=== PATIENT | female | born 1935 | race Caucasian/White ===

== ENCOUNTER 2018-07-05 23:59 | Inpatient (IN) | payer MEDICARE ==
--- NOTE | 2018-07-06 00:48 | ED ---
Neurological HPI - HPI Summary HPI Summary: HPI LIMITED DUE TO LEVEL 5 CAVEAT - APHASIA We know she has a history of diabetes, HTN, and TIA from the [place] emergency room chart. Patient was seen by RENEE Malin from [place], who contacted me earlier around 2200 yesterday. She communicated that the patient presented to the emergency room with aphasia that resolved. The pt then had an episode of recurrence, which resolved again. The PA said the pt was neurologically intact at 2200 when she spoke to me. Pt was transferred here for TIA workup. Pt was given aspirin at the [facility] for TIA. - History of Current Complaint Chief Complaint: EDNeurologicalDeficit Stated Complaint: POSSIBLE STROKE/CVA PER EMS Time Seen by Provider: 07/06/18 00:30 Hx Obtained From: Patient, EMS Onset/Duration: Sudden Onset Timing: Constant Current Severity: Mild Seizure Severity: Mild Pain Intensity: 0 Pain Scale Used: 0-10 Numeric Aggravating: Environmantal Exposure Alleviating: Nothing Associated Signs and Symptoms: Positive: Impaired Speech - Allergy/Home Medications Allergies/Adverse Reactions: Allergies Allergy/AdvReac Type Severity Reaction Status Date / Time apixaban [From Eliquis] Allergy Unknown Verified 07/06/18 00:14 Reaction Details docosahexanoic acid Allergy Unknown Verified 07/06/18 00:14 [From MegaRed [id number]] Reaction Details eicosapentaenoic acid Allergy Unknown Verified 07/06/18 00:14 [From MegaRed [id number]-[id number]] Reaction Details fluconazole Allergy Unknown Verified 07/06/18 00:14 Reaction Details Iodine and Iodide Containing Allergy Anaphylatic Verified 07/06/18 00:14 Produc Shock levofloxacin Allergy Unknown Verified 07/06/18 00:14 Reaction Details nitrofurantoin Allergy Unknown Verified 07/06/18 00:14 Reaction Details omega-3 fatty acids Allergy Unknown Verified 07/06/18 00:14 [From MegaRed [id number]] Reaction Details solifenacin Allergy Rash Verified 07/06/18 00:14 Wptebtd-Pmg-Jah Reductase Allergy Muscle Ache Verified 07/06/18 00:14 Inhibitor Home Medications: Home Medications Amlodipine Besylate [Norvasc] 5 mg PO DAILY 07/06/18 [History Confirmed 07/06/18 ] Aspirin 81 mg CHEW TAB* [Aspirin Low Dose TAB*] 81 mg PO DAILY 07/06/18 [ History Confirmed 07/06/18] Butalb/Acetaminophen/Caffeine [Butalbital/Acetaminophen/ 50-325-40 mg-] 1 cap PO Q6H PRN 07/06/18 [History Confirmed 07/06/18] Dicyclomine CAP* [Bentyl CAP*] 10 mg PO BID 07/06/18 [History Confirmed 07/06/18 ] Ezetimibe TAB* [Zetia TAB*] 10 mg PO 1700 07/06/18 [History Confirmed 07/06/18] LORazepam [Ativan 0.5 MG TAB] 0.5 mg PO BID PRN 07/06/18 [History Confirmed ] Meclizine TAB* [Antivert 12.5 TAB*] 12.5 mg PO TID PRN 07/06/18 [History Confirmed 07/06/18] Metoclopramide TAB* [Reglan TAB*] 10 mg PO Q8H PRN 07/06/18 [History Confirmed 07/06/18] Metoprolol Succinate 50 mg PO BEDTIME 07/06/18 [History Confirmed 07/06/18] Omeprazole 40 mg PO DAILY 07/06/18 [History Confirmed 07/06/18] Polyethylene Glycol 3350 [Clearlax] 1 dose PO QPM PRN 07/06/18 [History Confirmed 07/06/18] Tramadol HCl [Ultram] 50 mg PO Q4H 07/06/18 [History Confirmed 07/06/18] hydrOXYzine HCL TAB* [Atarax 25 MG TAB*] 25 mg PO QID PRN 07/06/18 [History Confirmed 07/06/18] PMH/Surg Hx/FS Hx/Imm Hx Previously Healthy: No - PMHx LIMITED DUE TO LEVEL 5 CAVEAT - APHASIA Infectious Disease History: Unable to Obtain/Confirm Infectious Disease History: Denies: Traveled Outside the [place] in Last 30 Days - Social History Occupation: Retired Lives: Alone Review of Systems - ROS Summary Review of Systems Summary: ROS LIMITED DUE TO LEVEL 5 CAVEAT - APHASIA Neurological: Other - Positive impaired speech All Other Systems Reviewed And Are Negative: No Physical Exam - Summary Physical Exam Summary: PE LIMITED DUE TO LEVEL 5 CAVEAT - APHASIA VITAL SIGNS: Reviewed. GENERAL: Patient is a well-developed and nourished female who is lying comfortable in the stretcher. Patient is not in any acute respiratory distress. HEAD AND FACE: No signs of trauma. No ecchymosis, hematomas or skull depressions. No sinus tenderness. EYES: PERRLA, EOMI x 2, No injected conjunctiva, no nystagmus. EARS: Hearing grossly intact. Ear canals and tympanic membranes are within normal limits. MOUTH: Oropharynx within normal limits. NECK: Supple, trachea is midline, no adenopathy, no JVD, no carotid bruit, no c- spine tenderness, neck with full ROM. CHEST: Symmetric, no tenderness at palpation LUNGS: Clear to auscultation bilaterally. No wheezing or crackles. CVS: Regular rate and rhythm, S1 and S2 present, no murmurs or gallops appreciated. ABDOMEN: Soft, non-tender. No signs of distention. No rebound no guarding, and no masses palpated. Bowel sounds are normal. EXTREMITIES: FROM in all major joints, no edema, no cyanosis or clubbing. NEURO: Aphasic, dysarthria, and patient seemed to have right drift in the right lower extremity SKIN: Dry and warm Triage Information Reviewed: Yes Vital Signs On Initial Exam: Initial Vitals Temp Pulse Resp BP Pulse Ox 97.7 F 59 22 164/77 96 07/06/18 00:07 07/06/18 00:07 07/06/18 00:07 07/06/18 00:07 07/06/18 00:07 Vital Signs Reviewed: Yes Diagnostics - Vital Signs Vital Signs Temp Pulse Resp BP Pulse Ox 07/06/18 00:07 97.7 F 59 22 164/77 96 - Laboratory Lab Results: Lab Results 07/06/18 Range/Units 00:21 POC Glucose (mg/dL) 122 H (70-100) mg/dL Result Diagrams: 07/06/18 01:12 07/06/18 01:12 Lab Statement: Any lab studies that have been ordered have been reviewed, and results considered in the medical decision making process. - Radiology CXR Radiology Interpretation Completed By: ED Physician Summary of Radiographic Findings: Chest XR reveals, per ED physician, no acute process. - CT Brain CT CT Interpretation Completed By: Radiologist Summary of CT Findings: Brain CT reveals, per radiologist, no acute intracranial abnormality. ED physician has reviewed this radiology report. - EKG 0111 Cardiac Rate: NL EKG Rhythm: Sinus Rhythm - 71 BPM Summary of EKG Findings: An EKG taken at 0111 reveals normal sinus rhythm at 71 BPM with normal axis, normal interval, and no ischemic changes. NIH Scale - NIH Scale Level of Consciousness: Alert/Keenly Responsive Ask Patient the Month and His/Her Age: Neither Correct/Aphasic Ask Pt to Open/Close Eyes and Supply Chain Consultant/Release Non-Paretic Hand: Both Correctly Best Gaze (Only Horizontal Eye Movement): Normal Visual Field Testing: No Visual Loss Facial Paresis-Pt to Smile & Close Eyes or Grimace Symmetry: Normal/Symmetrical Motor Function - Right Arm: No Drift-Holds 10 Seconds Motor Function - Left Arm: No Drift-Holds 10 Seconds Motor Function - Right Leg: Drifts LT 10 seconds Motor Function - Left Leg: No Drift-Holds 10 Seconds Limb Ataxia-Must be out of Proportion to Weakness Present: Absent Sensory (Use Pinprick to Test Arms/Legs/Trunk/Face): Normal Best Language (Describe Picture, Name Items): Severe Aphasia Dysarthria (Read Several Words): Slurs Some Words Extinction and Inattention: No Abnormality Total Score: 6 Course/Dx - Course Course Of Treatment: According to the PA from [place], the pt presented to the emergency at 2115 and stated she was unable to talk at 1930, which then resolved. The pt left the emergency room at 2240 and pt was neurologically intact when she left the ED. Here, the pt was found to be aphasic and dysarthric. INR from [place] was 1.72, repeat INR from here was 1.19. Case discussed with Dr. Lemus from stroke center at [place]. He stated that according to the chart and sequence of events, 2240 was last known well by the PA and the pt is a candidate for TPA as long as INR is normal. Pt received TPA. - Diagnoses Provider Diagnoses: Acute CVA (cerebrovascular accident) During the Visit The Following Alert/Code Occurred: Code Gonzalez - Called at 0046 - Physician Notifications Instructed by Provider To: Other - Consult with the transfer and pumphouse operator at [place] at 0055. Consult with Dr. Lemus (stroke attending at [place]) at 0115. He recommended the patient receive TPA. Consult with Dr. Morris (radiologist ) at 0127. She communicated the results of the CT scan. Consult with Dr. Hernandez (hospitalist) at 0223. She agrees to admit the patient for further evaluation. - Critical Care Time Critical Care Time: 75-104 min - 75 minutes Discharge - Sign-Out/Discharge Documenting (check all that apply): Patient Departure - Ad[place] [facility] Patient Received Moderate/Deep Sedation with Procedure: No - Discharge Plan Condition: Stable Disposition: ADMITTED TO [facility] Referrals: No Primary Care Phys,NOPCP [Primary Care Provider] - - Attestation Statements Document Initiated by Scribe: Yes Documenting Scribe: Josefina Barraza Provider For Whom Scribe is Documenting (Include Credential): Dr. Aurelia Clemente MD Scribe Attestation: I, Josefina Barraza, scribed for Dr. Aurelia Clemente MD on 07/06/18 at 0443. Status of Scribe Document: Ready
[2018-07-06] MEDS ORDERED: NS 0.9% 1000 ML** 1,000 ML IV ONE (01:03)
[2018-07-06 01:18] LABS: ABS Basophils 0 10^3/ul (0-0.2); ABS Eosinophils 0.1 10^3/ul (0-0.6); ABS Lymphocytes 1.5 10^3/ul (1.0-4.8); ABS Monocytes 0.5 10^3/ul (0-0.8); ABS Neutrophils 4.5 10^3/ul (1.5-7.7); ABS Nucleated RBC 0 10^3/ul; Eosinophil % 0.8 %; Hematocrit 38 % (33-41); Hemoglobin 12.4 g/dL (12.0-16.0); Mean Corpuscular HGB Conc 33 g/dL (31-36); Mean Corpuscular Hemoglobin 28 pg (27-31); Mean Corpuscular Volume 84 fL (80-97); Mean Platelet Volume 7.8 fL (7.4-10.4); Nucleated Red Blood Cells % 0; Platelet Count 218 10^3/uL (150-450); Red Blood Count 4.47 10^6 /uL (3.70-4.87); Red Cell Distribution Width 14 % (10.5-15); White Blood Count 6.5 10^3/uL (3.5-10.8)
[2018-07-06 01:27] LABS: INR 1.19 (0.77-1.02)
[2018-07-06] MEDS ORDERED: Alteplase* 100 MG VIAL IVPB ONE (01:34)
[2018-07-06] MEDS ORDERED: Alteplase* 100 MG VIAL ONE (01:34)
[2018-07-06] MEDS ORDERED: Alteplase* 100 MG VIAL IV ONE (01:34)
[2018-07-06 01:36] LABS: Albumin 4.2 g/dL (3.2-5.2); Albumin/Globulin Ratio 1.7 (1-3); BUN/Creatinine Ratio 21.7 (8-20); Calcium 9.5 mg/dL (8.6-10.3); EGFR African American 79.4 (>60); EGFR Non-African American 65.7 (>60); Globulin 2.5 g/dL (2-4); HDL Cholesterol 48.7 mg/dL; Potassium 3.5 mmol/L (3.5-5.0); Total Bilirubin 0.6 mg/dL (0.2-1.0); Total Protein 6.7 g/dL (6.4-8.9)
[2018-07-06 01:38] LABS: Troponin I 0.01 ng/mL (<0.04)
[2018-07-06 02:22] LABS: Urine Appearance Clear; Urine Bilirubin Negative (Negative); Urine Blood Negative (Negative); Urine Color Straw; Urine Glucose Negative (Negative); Urine Ketones 1+ (Negative); Urine Nitrite Negative (Negative); Urine Protein Negative (Negative); Urine Urobilinogen Negative (Negative)
[2018-07-06] MEDS ORDERED: Labetalol IV* 5 MG/ML 20 ML VIAL IV PUSH PRN (02:25)
[2018-07-06] MEDS ORDERED: Acetaminophen SUPP* 650 MG SUPP PR PRN (02:29)
[2018-07-06] MEDS ORDERED: PROCHLORPERAZINE INJ 5 MG/ML 2 ML VIAL IV PRN (02:30)
[2018-07-06 05:05] LABS: ABS Basophils 0 10^3/ul (0-0.2); ABS Eosinophils 0.1 10^3/ul (0-0.6); ABS Lymphocytes 1.1 10^3/ul (1.0-4.8); ABS Monocytes 0.4 10^3/ul (0-0.8); ABS Neutrophils 5.1 10^3/ul (1.5-7.7); ABS Nucleated RBC 0 10^3/ul; Eosinophil % 0.8 %; Hematocrit 39 % (33-41); Hemoglobin 13.1 g/dL (12.0-16.0); Lymphocyte % 16.1 %; Mean Corpuscular HGB Conc 34 g/dL (31-36); Mean Corpuscular Hemoglobin 29 pg (27-31); Mean Corpuscular Volume 85 fL (80-97); Mean Platelet Volume 7.9 fL (7.4-10.4); Nucleated Red Blood Cells % 0; Platelet Count 186 10^3/uL (150-450); Red Blood Count 4.59 10^6 /uL (3.70-4.87); Red Cell Distribution Width 14 % (10.5-15); White Blood Count 6.7 10^3/uL (3.5-10.8)
[2018-07-06 05:30] LABS: Calcium 8.9 mg/dL (8.6-10.3); Potassium 3.6 mmol/L (3.5-5.0)
[2018-07-06 05:36] LABS: BUN/Creatinine Ratio 21.1 (8-20); EGFR African American 95.1 (>60); EGFR Non-African American 78.6 (>60)
--- NOTE | 2018-07-06 06:29 | HP ---
CC: Tracy Romero DO HISTORY AND PHYSICAL: DATE OF ADMISSION: 07/06/18 TIME OF EVALUATION: 2:25 a.m. PRIMARY CARE PROVIDER: Tracy Romero DO CHIEF COMPLAINT: Code kay. HISTORY OF PRESENT ILLNESS: Please note that the patient is not able to provide any meaningful history at this time, so the information is obtained from her records and from the emergency room provider. Ms. García is an 82-year-old female with past medical history of CKD, COPD, type 2 diabetes, diverticulosis, GI bleed, hypertension, IBS, prior TIA, who was in her usual state of health until around 7:30 last night. There was a report that her right face felt weird and she went to [facility] Emergency Room where she was received at 9:08 p.m. She complained that the right side of her face was feeling weird, and at that time, the patient was described as alert, oriented x3 with no other complaint. Around 10:17, the RN described the patient was word searching and trying to explain what she was trying to say, but her words were jumbled and not making any sense. She went to a CAT scan, and when she returned at 2234, apparently her speech was back to normal, and [facility] ED was contacted for transfer and neurology evaluation. At [place], she received 325 mg of aspirin and 0.5 mg of lorazepam. Per ED provider, by the time the patient arrived to [facility] and he went to evaluate her, the patient was completely aphasic and a code eliza was called. He consulted Dr. Lemus, stroke attending at [place] at 1:15 a.m., and he recommended the patient receive TPA and this was done in the emergency room. At the time of my interview, the patient was able to tell me her name is Vanessa but cannot tell me her last name, and she can tell me she needs to go to the bathroom, but she cannot provide anymore meaningful history. She denies chest pain, palpitations, headache, nausea, or vomiting, but to those questions, she answered with a head shake. PAST MEDICAL HISTORY: I am unable to obtain from the patient and according to the records from [place], the patient has a history of: 1. CKD. 2. COPD. 3. Type 2 diabetes. 4. Diverticulitis. 5. GI bleed. 6. Hypertension. 7. Irritable bowel syndrome. 8. TIA. PAST SURGICAL HISTORY: 1. Status post right hip surgery x2. 2. Status post hysterectomy. 3. Status post appendectomy. 4. Status post cholecystectomy. 5. Left ankle fracture. MEDICATION LIST: 1. Amlodipine 5 p.o. daily. 2. Aspirin 81 mg p.o. daily. 3. Butalbital/acetaminophen/caffeine 1 capsule p.o. q.6 hours p.r.n. headache. 4. Dicyclomine 10 mg p.o. b.i.d. 5. Zetia 10 mg p.o. daily. 6. Hydroxyzine 25 mg p.o. q.i.d. as needed for anxiety. 7. Lorazepam 0.5 mg p.o. b.i.d. as needed for anxiety. 8. Meclizine 12.5 mg p.o. t.i.d. p.r.n. dizziness. 9. Metoclopramide 10 mg p.o. q.8 hours p.r.n. nausea and vomiting. 10. Metoprolol succinate 50 mg p.o. at bedtime. 11. Omeprazole 40 mg p.o. daily. 12. MiraLAX 1 dose p.o. at bedtime as needed for constipation. 13. Tramadol 50 mg p.o. q.4 hours. ALLERGIES: APIXABAN, OMEGA 3, FLUCONAZOLE, IODINE, LEVOFLOXACIN, NITROFURANTOIN , SOLIFENACIN, and STATINS. FAMILY HISTORY: I am unable to obtain from the patient due to her aphasia. SOCIAL HISTORY: I am unable to obtain from the patient due to her aphasia. REVIEW OF SYSTEMS: Limited review of systems as described in the HPI, but I am unable to obtain more details due to her aphasia. PHYSICAL EXAMINATION GENERAL: The patient is an elderly lady, lying in the ED stretcher, in no acute distress. VITAL SIGNS: Temperature 97.6, heart rate is 73, respiratory rate is 20, oxygen saturation is 97% on room air, blood pressure is 176/93. HEENT: Pupils are equal. Extraocular movements are intact. Moist mucous membranes. CHEST: Breath sounds present bilaterally with no added sounds. CVS: Normal S1, S2. Regular rate and rhythm. ABDOMEN: Soft with mild epigastric tenderness but no palpable bladder. Bowel sounds are present. EXTREMITIES: No edema. NEURO: The patient is alert and awake, oriented to self and place. She is able to tell me her name is Vanessa but unable to give me more meaningful information. Strength is 5/5 in both upper extremities and 4/5 on her right leg. NIH stroke scale is 5. LABORATORY AND IMAGING DATA: The patient had a CBC that showed a WBC of 6.5, hemoglobin of 12.4, hematocrit of 38, platelets of 218 with 68% neutrophils. INR is 1.19. Chemistries showed a sodium of 139, potassium of 3.5, chloride of 107, bicarb of 22, BUN of 18, creatinine of 0.83, glucose of 112 with a lactic acid of 1.2. LFTs are normal. Lipid profile showed triglycerides 74, cholesterol 199, LDL 136, HDL 48. Urinalysis showed 1+ ketones. CT of the brain showed no acute intracranial findings. EKG done on 07/06/18 at 1:11 a.m. showed sinus rhythm at 71 beats per minute with motion artifact, but I see P waves and I do not think this is atrial fibrillation. There is no prior EKG to compare. ASSESSMENT AND PLAN: Ms. García is an 82-year-old female with a past medical history of chronic kidney disease, chronic obstructive pulmonary disease, type 2 diabetes, diverticulitis, gastrointestinal bleed, hypertension, irritable bowel syndrome, transient ischemic attack, who was transferred from [facility] with right-sided facial tingling and difficulty with speech, who on arrival to our emergency room was aphasic and as a code kay, she received TPA. 1. Cerebrovascular accident, status post TPA. The patient's speech appears to be improving a little. She will be admitted to the intensive care unit, and we will continue the post TPA protocol. At this point, she is n.p.o., and she will need a swallow evaluation. She will have labetalol IV as needed for blood pressure greater than 185/110. She will be monitored with frequent neurological checks and vital signs monitoring. A CTA of the head and neck had been ordered in the emergency room, but unfortunately the patient is allergic to IODINE, so this test was canceled. I ordered MRI of the brain with MRA of the head and neck. Neurology consultation will be requested. For now, the patient will not receive further aspirin. She will have a repeat CT of the brain tomorrow, and if there are no signs of bleeding, she could then be started on antiplatelet therapy. 2. Type 2 diabetes. We will check her fingersticks q.6 hours and cover with regular insulin sliding scale as needed. 3. Hyperlipidemia. The patient is on Zetia as outpatient, and we will resume that when she is able to swallow. There is a reported allergy to STATINS. 4. Hypertension. The patient's amlodipine is on hold for now until she passes her swallow evaluation. She will have labetalol IV as needed for blood pressure above 185/110. 5. DVT prophylaxis: The patient has a score of 3 on the DVT prophylaxis assessment guide and pharmacological prophylaxis is contraindicated in the setting of recent TPA infusion. The patient will have SCDs. 6. Code status is full. TIME SPENT: Approximately 55 minutes of critical care time was spent to complete the admission. [id number]/CPS #: [id number] SULAIMAN
[2018-07-06] MEDS: Insulin REGULAR(*) 1 UNITS UNIT SUBCUT SCH ×3 (07:01→19:17)
--- NOTE | 2018-07-06 07:39 | PN ---
Hospitalist Progress Note Date of Service: 07/06/18 HOSPITALIST ADDENDUM Neurology consult requested with Dr Richardson. Patient had anaphylactic reaction to iodine contrast - plan for MRI/MRA head/neck ARELY as she may have large vessel disease and be a candidate for further intervention. Called Radiologist/water supply technician and patient is scheduled for 10AM. Dr Richardson and Dr Hernandez updated.
[2018-07-06] MEDS ORDERED: LORazepam INJ* 2 MG/ML 1 ML VIAL IV PUSH ONE (09:27)
[2018-07-06] MEDS ORDERED: LORazepam INJ* 2 MG/ML 1 ML VIAL ONE (09:52)
[2018-07-06] MEDS: LORazepam INJ* 2 MG/ML 1 ML VIAL IV PUSH ONE ×2 (12:46→14:28)
--- NOTE | 2018-07-06 14:49 | CONS ---
NEUROLOGY CONSULTATION NOTE: DATE OF CONSULT: 07/06/18 CONSULTING PROVIDER: Dr. Sam. REASON FOR CONSULT: Stroke. CHIEF COMPLAINT: Word-finding difficulty. HISTORY OF PRESENT ILLNESS: Ms. Nova García is an 82-year-old female, who lives alone and performs all activities of daily living independently, who presented to [facility] as a transfer from [facility] for new - onset word-finding difficulty and right-sided weakness. The patient has a history of CKD, type 2 diabetes, hypertension, prior history of TIA, who was last known well at 7:30 p.m. on 07/05/18. There were some reports that the patient had right facial paresthesias that resolved at [facility]. However, at 10:17 p.m. on 07/05/18, the patient was found to have word-finding difficulty. She had a CT of the head done at [facility], and apparently , the patient's symptoms completely resolved at approximately 10:30 p.m. The patient was then transferred to [facility] for further evaluation. A code kay was activated by Dr. Clemente when he noticed word-finding difficulty and right-sided weakness at 12:46 a.m. [facility]roke was consulted and Dr. Lemus evaluated the patient at 1:15 a.m. She was thought to be last known well at 2234 on 07/05/18. She was given TPA and infused at 1: 50 a.m. on 07/06/18. Her NIH stroke scale was reported to be 6 for aphasia, right facial droop, right-sided weakness, and predominantly in the right leg. I do not have the records available from the [facility] consultation. However, a CTA was not urgently completed because the patient has a contrast dye allergy. MRI/MRA head and neck were scheduled for this morning. The patient was evaluated by myself this morning. She seems to have slight psychomotor slowing with some anxiety, but she reports word- finding difficulty that improved after IV TPA. She also had right leg weakness, for which she contributes it to arthritic changes in the lumbar spine; however, she is able to ambulate with just using a cane in the past and now she can barely lift the right leg. Today's NIH stroke scale was 4 for word-finding difficulty , slight right pronator drift of the right upper extremity and 2.4 right leg drift. MRI/MRA head and neck were attempted this morning at 10 a.m. after a small dose of Ativan, but the patient refused to cooperate due to severe claustrophobia. The MRI will be repeated again this afternoon. The patient tolerated the IV TPA infusion. She is still within the 24-hour window of IV TPA. PAST MEDICAL HISTORY: CKD, COPD, type 2 diabetes, diverticulitis, GI bleed, hypertension, irritable bowel syndrome, TIA. PAST SURGICAL HISTORY: Right hip surgery x2, status post hysterectomy, appendectomy, cholecystectomy, and left ankle surgery. MEDICATIONS: 1. Amlodipine 5 mg p.o. daily. 2. Aspirin 81 mg p.o. daily. 3. Fioricet. 4. Dicyclomine. 5. Zetia 10 mg daily. 6. Hydroxyzine 25 mg p.o. q.i.d. as needed for anxiety. 7. Lorazepam 0.5 mg p.o. twice daily as needed for anxiety. 8. Meclizine 12.5 mg p.o. t.i.d. as needed for dizziness. 9. Reglan 10 mg p.o. every 8 hours as needed for nausea and vomiting. 10. Metoprolol 50 mg p.o. at bedtime. 11. Omeprazole 40 mg p.o. daily. 12. MiraLAX 1 dose p.o. at bedtime as needed. 13. Tramadol 50 mg p.o. every 4 hours. ALLERGIES: APIXABAN, OMEGA-3, FLUCONAZOLE, IODINE, LEVOFLOXACIN, NITROFURANTOIN , SOLIFENACIN, and STATINS. FAMILY HISTORY: She has no family history of stroke or seizures. SOCIAL HISTORY: The patient again lives alone and performs all activities of daily living independently. She drives. She denied any history of tobacco or alcohol use. REVIEW OF SYSTEMS: A 14-point review of systems was obtained, otherwise negative except what was mentioned in the HPI. PHYSICAL EXAMINATION: Vitals: Temperature of 97.6, heart rate 77, respiratory rate of 24, oxygen saturation 95, blood pressure 141/119. I rechecked the blood pressure and it was 158/78. General: Well nourished, well developed, appears slightly demented female in no acute distress. Head: Normocephalic, atraumatic. Eyes: Conjunctivae/corneas are clear. Neck is supple and symmetrical. No carotid bruit. Lungs: Clear to auscultation bilaterally. Cardiovascular: Regular rate and rhythm with normal S1, S2. Extremities: Normal range of motion with no cyanosis. Skin: No skin lesions or laceration. Psych: Affect is broad and normal mood. NEUROLOGICAL EXAMINATION: Mental Status: Awake, alert, oriented to person, place, time, and general circumstances. She seems slightly anxious. Cranial Nerves: Normal confrontation testing bilaterally. Pupils are mid range and reactive to light. Normal consensual response. Extraocular muscles are intact. Sensation is intact on the forehead, cheeks, and jaw region bilaterally. There is no clear facial droop, but she does have widening of the palpable fissure on the right side. She is able to hear throughout the history process. Symmetrical palatal elevation. Tongue is symmetrical and midline with anterior fasciculation. Motor: She has slight pronator drift on the right and drift of the right leg as well. Normal bulk and tone throughout. She has 5/5 strength throughout except for 4+ on the right elbow extension, hip flexion, and knee flexion on the right side. Sensation is intact to light touch throughout. Reflexes, brachioradialis 2/1, biceps 2/1, triceps 2/1, patella 2/1 , ankle trace/0, plantar flexor/flexor. Coordination: Normal [id number] and reduced rapid alternating movement on the right side. Gait was not assessed. ASSESSMENT AND RECOMMENDATION: Mrs. Nova García is an 82-year-old female who has a history of hypertension, who presents with sudden-onset aphasia associated with right hemiparesis mostly involving the right lower extremity. The patient was evaluated for acute stroke by the [facility] Telest[facility]. She was deemed a candidate for IV TPA. It is unclear why the patient was not evaluated for mechanical thrombectomy given that her NIH stroke scale was high (6) on presentation. Currently, her NIH dropped to 4 after TPA therapy. I suspect the patient may have had a left MCA vascular territory or left JOSUE vascular territory ischemic infarction. Please evaluate for atrial fibrillation. Please order a 2D echo with bubble study. Please hold all anti- thrombotic agents since the patient received TPA within the last 24 hours. Admit to the ICU for further evaluation. Neuro checks per ICU post TPA protocol. We discussed stroke education. I have also discussed the case with Dr. George and an MRI of the brain and MRA head and neck will be urgently ordered and evaluated to evaluate for large-vessel occlusion involving the left ICA or the left MCA. Dr. George agreed to discuss the case with the cytogenetics technologist; and hopefully, the patient will proceed with MRI this afternoon. It is important to note that we had urgently transferred the patient to MRI to obtain the study, but she was severely claustrophobic and appropriately refused to undergo evaluation. However, we are going to try doing the MRI with increase sedation this afternoon. The patient refused to be started on STATIN therapy due to a history of an allergic reaction. TIME SPENT: I spent a total of 60 minutes of critical care time assessing the patient, interviewing the patient, obtaining history and evaluation, interpreting the CT head result, discussing the case with the patient and Dr. George, and answering the patient's questions. [id number]/CPS #: [id number] MTDD
[2018-07-06] MEDS: Lactated Ringers 1000 ML Bag* 1,000 ML IV SCH (16:30)
--- NOTE | 2018-07-06 17:01 | PN ---
Hospitalist Progress Note Pt admitted overnight and evaluated by Neuro. Given tPA at 2 AM on 07/06. Being admitted to ICU for post-TPA protocal. Still pending bed. TTE with bubbles ordered. Carotid US ordered. MRA Head/Neck without large-vessel occlusion. NO further AC, antiplatelet, or medical DVT prophylactic therapies. Maintain BP < 180 mmHg. Will have 24-hr repeat Head CT done overnight. On exam, pt asks "what happened?" AOx3. CN II - XII intact 5/5 strength in all extremities except mild impairment (4+/5) on R elbow ext, R hip flex, and R knee ext
[2018-07-06] MEDS: traMADol TAB* 50 MG PO SCH (20:43)
[2018-07-06] MEDS: LORazepam TAB(*) 0.5 MG PO PRN (20:57)
[2018-07-07] MEDS: Insulin REGULAR(*) 1 UNITS UNIT SUBCUT SCH ×4 (00:57→18:23)
[2018-07-07 05:45] LABS: ABS Basophils 0 10^3/ul (0-0.2); ABS Eosinophils 0.1 10^3/ul (0-0.6); ABS Lymphocytes 1.4 10^3/ul (1.0-4.8); ABS Monocytes 0.5 10^3/ul (0-0.8); ABS Neutrophils 1.9 10^3/ul (1.5-7.7); ABS Nucleated RBC 0 10^3/ul; Eosinophil % 2.5 %; Hematocrit 35 % (33-41); Hemoglobin 11.8 g/dL (12.0-16.0); Lymphocyte % 35.7 %; Mean Corpuscular HGB Conc 33 g/dL (31-36); Mean Corpuscular Hemoglobin 28 pg (27-31); Mean Corpuscular Volume 85 fL (80-97); Mean Platelet Volume 7.9 fL (7.4-10.4); Nucleated Red Blood Cells % 0.1; Platelet Count 170 10^3/uL (150-450); Red Blood Count 4.18 10^6 /uL (3.70-4.87); Red Cell Distribution Width 14 % (10.5-15); White Blood Count 3.9 10^3/uL (3.5-10.8)
[2018-07-07 06:03] LABS: BUN/Creatinine Ratio 15.3 (8-20); Calcium 8.7 mg/dL (8.6-10.3); EGFR African American 93.6 (>60); EGFR Non-African American 77.4 (>60); Potassium 3.4 mmol/L (3.5-5.0)
[2018-07-07] MEDS: traMADol TAB* 50 MG PO SCH ×6 (06:26→21:38)
[2018-07-07] MEDS: Lactated Ringers 1000 ML Bag* 1,000 ML IV SCH (08:02)
[2018-07-07] MEDS ORDERED: Potassium Chlor TAB* 20 MEQ TAB.ER PO ONE (08:20)
--- NOTE | 2018-07-07 10:59 | ECHO ---
Patient: MEKA ROBLES [facility] Rec#: [id number] : 1935 Date: 07/07/2018 Age: 82y Height: 165 cm / 65.0 in Weight: 64.2 kg / 141.5 lbs Sex: F BSA: 1.7 Room#: ICU 3 Admit Date#: 07/06/2018 Type: Inpatient Referring: Estelle Hernandez MD Reading: Paolo Roman MD Department Operations Manager: Kandy Combs RN RDCS CC: Tracy Romero, DO Transthoracic Echocardiogram Indication: CVA, S/P tPA BP: 140/65 HR: 51 Rhythm: Bradycardia Findings History: HTN, DM, COPD, CKD, prior TIA Technical Comments: The study quality is fair. The study is technically limited due to the patient's history of COPD. Left Ventricle: The left ventricular chamber size is normal. Moderate concentric left ventricular hypertrophy is observed. Global left ventricular wall motion and contractility are within normal limits. There is normal left ventricular systolic function. The estimated ejection fraction is 60-65%. There is no consistent Doppler evidence of clinically significant diastolic dysfunction. Left Atrium: The left atrial chamber size is normal. Right Ventricle: The right ventricle wall thickness is mildly increased. The right ventricular cavity size is normal. The right ventricular global systolic function is normal. Right Atrium: The right atrium is slightly dilated. The bubble study is negative. A patent foramen ovale is not demonstrated with color Doppler and agitated contrast. Aortic Valve: The aortic valve leaflets are mildly thickened. There is aortic annular calcification. There is mild to moderate aortic regurgitation. There is mild to moderate aortic stenosis. The mean gradient of the aortic valve is 13 mmHg. The peak instantaneous gradient of the aortic valve is 27 mmHg. The aortic valve area, by peak velocities, is calculated at 1.3 cm2. The aortic valve area, by VTI's, is calculated at 1.3 cm2. The dimensionless index is 0.46. Highest aortic valve velocity was acquired with Pedoff in apical position. Mitral Valve: The mitral valve leaflets are mildly thickened. There is mild mitral regurgitation. There is no evidence of mitral stenosis. Tricuspid Valve: The tricuspid valve leaflets are normal. There is mild tricuspid regurgitation. No pulmonary hypertension is noted. There is no tricuspid stenosis. Pulmonic Valve: The pulmonic valve appears normal. There is mild to moderate pulmonic regurgitation. There is no pulmonic stenosis. Pericardium: There is no significant pericardial effusion. A pericardial fat pad is visualized. Aorta: There is mild dilatation of the ascending aorta. There is no dilatation of the aortic arch. There is no dilation of the aortic root. Pulmonary Artery: The main pulmonary artery appears normal. Venous: The inferior vena cava appears normal in size. There is a greater than 50% respiratory change in the inferior vena cava dimension. Contrast: Normal saline was used as contrast for the bubble study. Images 118 and 119. Summary: There was not any prior study for comparison. Conclusions Global left ventricular wall motion and contractility are within normal limits. There is normal left ventricular systolic function. The estimated ejection fraction is 60-65%. The right ventricle wall thickness is mildly increased. The right ventricular global systolic function is normal. A patent foramen ovale is not demonstrated with color Doppler and agitated contrast. The aortic valve leaflets are mildly thickened. There is mild to moderate aortic stenosis. The mean gradient of the aortic valve is 13 mmHg. There is mild mitral regurgitation. There is mild tricuspid regurgitation. No pulmonary hypertension is noted. There is no significant pericardial effusion. Measurements Name Value Normal Range RVIDd (AP) 2D 2.6 cm (0.9 - 2.6) RVDdMajor (2D) 2.3 cm (2.2 - 4.4) RVAW (2D) 0.8 cm (0.2 - 0.5) RAd ISD 4CH 5.1 cm (3.4 - 4.9) RA (A4C)W 3 cm (2.9 - 4.6) IVSd (2D) 1.5 cm (0.6 - 1) LVPWd (2D) 1.5 cm (0.6 - 1) LVIDd (2D) 3.8 cm (3.6 - 5.4) LVIDs (2D) 2.5 cm - LV FS (2D) 34 % (25 - 45) Aortic Annulus 1.8 cm (1.4 - 2.6) Ao root diameter (2D) 3.1 cm (2.1 - 3.5) Ascending Ao 3.7 cm (2.1 - 3.4) Aortic arch 2.4 cm (1.8 - 3.4) LA dimension (AP) 2D 3.5 cm (2.3 - 3.8) LAd ISD 4CH 5.2 cm (2.9 - 5.3) LA ISD 4CH W 3.7 cm (2.5 - 4.5) Name Value Normal Range LA ESV SP 4CH (A/L) 41 ml - LA ESV SP 2CH (A/L) 50 ml - LA ESV BP (A/L) 46 ml - LA ESV BP (A/L) index 26.9 ml/m2 - LA ESV SP 4CH (MOD) 39 ml - LA ESV SP 2CH (MOD) 47 ml - Name Value Normal Range MV E-wave Vmax 0.7 m/sec - MV deceleration time 376 msec - MV A-wave Vmax 1.2 m/sec - MV E:A ratio 0.6 ratio - LV septal e' Vmax 0.04 m/sec - LV lateral e' Vmax 0.04 m/sec - LV E:e' septal ratio 17.5 ratio - LV E:e' lateral ratio 17.5 ratio - Name Value Normal Range AV Vmax 2.6 m/sec - AV VTI 63.6 cm - AV peak gradient 27 mmHg - AV mean gradient 13 mmHg - LVOT diameter 1.9 cm - LVOT Vmax 1.2 m/sec - LVOT VTI 29.2 cm - LVOT peak gradient 5 mmHg - LVOT mean gradient 3 mmHg - DOI (VTI) 0.46 ratio - DOI (Vmax) 0.46 ratio - STU (continuity Vmax) 1.3 cm2 - STU (continuity VTI) 1.3 cm2 - JULIETA Vmax 0.53 m/sec - Name Value Normal Range TR Vmax 2.4 m/sec - TR peak gradient 23 mmHg - RAP 3 mmHg - RVSP 26 mmHg - IVC diameter 1.6 cm - Name Value Normal Range PV Vmax 0.91 m/sec -
[2018-07-07 12:27] LABS: Hematocrit 37 % (33-41); Hemoglobin 12.4 g/dL (12.0-16.0); Mean Corpuscular HGB Conc 33 g/dL (31-36); Mean Corpuscular Hemoglobin 28 pg (27-31); Mean Corpuscular Volume 84 fL (80-97); Mean Platelet Volume 7.7 fL (7.4-10.4); Platelet Count 179 10^3/uL (150-450); Red Blood Count 4.43 10^6 /uL (3.70-4.87); Red Cell Distribution Width 14 % (10.5-15); White Blood Count 5.7 10^3/uL (3.5-10.8)
--- NOTE | 2018-07-07 12:33 | PN ---
Subjective Date of Service: 07/07/18 Length of Stay: 1 Days Neurology is following for TIA. Interval History: She completely recovered yesterday afternoon. She has no neurological deficits. She feels even better today. She has no trouble finding the correct words. She is able to move the legs symmetrically. She had the same presentation 2 years ago and it was contributed to anxiety. She lost her dentures in the ambulance. Labs/imaging studies: 2D-TTE: EF 60%. No PFO. Normal left atrial size. Mild to moderate aortic stenosis. MRI brain without contrast on 07/06/2018: No acute stroke. Generalized atrophy with chronic small vessel ischemic changes. Motion artifact degraded the GRE sequence. MRA head and neck : no flow limiting stenosis. Review of Systems: Denied CP, SOB, or palpitations. Objective Active Medications: Acetaminophen (Tylenol Supp*) 650 mg DC Q4H PRN PRN Reason: Pain/fever Insulin Human Regular (Insulin Regular(*)) 0 units SUBCUT Q6HR [facility]; Protocol Last Admin: 07/07/18 06:26 Dose: Not Given Labetalol HCl (Trandate Iv*) 40 mg IV PUSH .EVERY 10 MINUTES PRN PRN Reason: BLOOD PRESSURE Lorazepam (Ativan Tab(*)) 0.25 mg PO Q6H PRN PRN Reason: ANXIETY Last Admin: 07/06/18 20:57 Dose: 0.25 mg Prochlorperazine Edisylate (Compazine Inj*) 5 mg IV Q6H PRN PRN Reason: NAUSEA/VOMITING Tramadol HCl (Ultram*) 50 mg PO Q4H [facility] Last Admin: 07/07/18 07:20 Dose: Not Given Vital Signs 07/07/18 07/07/18 07/07/18 09:30 10:00 10:01 Temperature Pulse Rate 67 86 96 Respiratory 12 14 19 Rate Blood Pressure 133/75 107/80 (mmHg) O2 Sat by Pulse 96 96 95 Oximetry 07/07/18 07/07/18 11:01 11:49 Temperature 98.1 F Pulse Rate 73 65 Respiratory 18 14 Rate Blood Pressure 142/61 (mmHg) O2 Sat by Pulse 100 99 Oximetry Intake and Output Last 24 Hours 07/05/18 07/06/18 07/07/18 07/08/18 06:59 06:59 06:59 06:59 Intake Total 1452.8 376 240 Output Total 475 0 Balance 1452.8 -99 240 Weight 141 lb 9.6 oz 142 lb 10.225 oz Intake: IV Fluids 1452.8 376 LR 395 376 Oral 240 Output: Urine 475 0 Landin 0 Oxygen Devices in Use Now: None Neurology Exam: General: Well nourished, well developed, and in no acute distress HEENT: Normocephelic/atraumatic, sclera anicteric, mucous membranes moist Neck: Supple Chest: Clear to auscultation bilaterally Cardiovascular: Regular rate and rhythm without murmurs, rubs, gallops Extremities: No clubbing, cyanosis, or edema Neurological Findings: Awake, alert, and oriented to person, place, and time. Speech: fluent without dysarthria, repetition intact Cranial Nerve: PERRL, EOM intact, VFF, no nystagmus Motor: s/s throughout, proximal and distal extremities x4 tone/bulk normal Sensation: intact to LT/PP bilaterally upper and lower extremities Deep Tendon Reflex: 2+ symmetric in the upper/lower extremities, Babinski - down going Finger to nose, rapid alternating movements intact without tremor, no dysdiadochokinesia Result Diagrams: 07/07/18 12:19 07/07/18 05:40 Additional Lab and Data: Lab Results 07/06/18 Range/Units 00:21 POC Glucose (mg/dL) 122 H (70-100) mg/dL Microbiology and Other Data: Microbiology 07/06/18 20:50 Nasal Screen MRSA (PCR) - Final Nasal Mrsa Not Detected Assessment/Plan 1. Left MCA vascular territory TIA- s/p IV tPA. She has no LVO. MRI brain is negative for acute ischemic stroke. Repeat CT head 24h post tPA showed no evidence of ICH. We need to evaluate for atrial fibrillation. She has an allergy to apixaban but not sure what she was taking that for. Does she have atrial fibrillation? Start Plavix 75 mg daily Start atorvastatin 20 mg nightly (LDL 136) Keep SBP within normal range Maximized primary stroke prevention Follow-up with neurology as an outpatient in 4 weeks. We will arrange an appointment. 2. Generalized anxiety disorder: She would benefit from low dose benzodiazepine as an outpatient. There is a suspicion that the anxiety could have contributed to her word finding difficulty. 3. Dyslipidemia Time spent: 25 minutes I will sign off but please contact me for any questions or concerns.
[2018-07-07 12:46] LABS: BUN/Creatinine Ratio 14.4 (8-20); EGFR African American 72.4 (>60); EGFR Non-African American 59.8 (>60); Potassium 3.5 mmol/L (3.5-5.0)
[2018-07-07] MEDS: Clopidogrel TAB* 75 MG PO SCH (13:05)
[2018-07-07] MEDS: LORazepam TAB(*) 0.5 MG PO PRN ×2 (13:13→21:32)
--- NOTE | 2018-07-07 15:52 | PN ---
Subjective Interval History: 24-hour CT Head post-TPA unremarkable. Transferred out of ICU to [facility] today. Started on clopidogrel/atorvastatin by Neurology, who has signed off recommending f/u in 4 weeks. Cleared by OT for DC without services. Pending PT. Pt reports feeling well and would like to go home. She states she feels at her baseline. Objective Active Medications: Acetaminophen (Tylenol Supp*) 650 mg [place] Q4H PRN PRN Reason: Pain/fever Atorvastatin Calcium (Lipitor*) 20 mg PO 2100 MASOUD Clopidogrel Bisulfate (Plavix Tab*) 75 mg PO DAILY [facility] Last Admin: 07/07/18 13:05 Dose: 75 mg Insulin Human Regular (Insulin Regular(*)) 0 units SUBCUT Q6HR [facility]; Protocol Last Admin: 07/07/18 12:36 Dose: Not Given Labetalol HCl (Trandate Iv*) 40 mg IV PUSH .EVERY 10 MINUTES PRN PRN Reason: BLOOD PRESSURE Lorazepam (Ativan Tab(*)) 0.25 mg PO Q6H PRN PRN Reason: ANXIETY Last Admin: 07/07/18 13:13 Dose: 0.25 mg Prochlorperazine Edisylate (Compazine Inj*) 5 mg IV Q6H PRN PRN Reason: NAUSEA/VOMITING Tramadol HCl (Ultram*) 50 mg PO Q4H [facility] Last Admin: 07/07/18 13:12 Dose: Not Given Vital Signs - 8 hr 07/07/18 07/07/18 07/07/18 07:46 07:56 07:57 Temperature 98.6 F Pulse Rate 47 Respiratory 16 15 Rate Blood Pressure 150/68 (mmHg) O2 Sat by Pulse 99 98 Oximetry 07/07/18 07/07/18 07/07/18 08:00 08:15 08:30 Temperature Pulse Rate 49 48 50 Respiratory 22 13 11 Rate Blood Pressure 158/65 143/56 139/62 (mmHg) O2 Sat by Pulse 99 99 96 Oximetry 07/07/18 07/07/18 07/07/18 09:00 09:10 09:30 Temperature Pulse Rate 65 67 Respiratory 21 11 12 Rate Blood Pressure 133/75 (mmHg) O2 Sat by Pulse 95 96 Oximetry 07/07/18 07/07/18 07/07/18 10:00 10:01 11:01 Temperature Pulse Rate 86 96 73 Respiratory 14 19 18 Rate Blood Pressure 107/80 (mmHg) O2 Sat by Pulse 96 95 100 Oximetry 07/07/18 07/07/18 07/07/18 11:49 13:04 13:10 Temperature 98.1 F 98.2 F Pulse Rate 65 57 Respiratory 14 16 20 Rate Blood Pressure 142/61 147/56 (mmHg) O2 Sat by Pulse 99 100 Oximetry 07/07/18 07/07/18 13:12 13:13 Temperature Pulse Rate Respiratory 16 16 Rate Blood Pressure (mmHg) O2 Sat by Pulse Oximetry Oxygen Devices in Use Now: None Appearance: well appearing, sitting on side of bed Ears/Nose/Mouth/Throat: Clear Oropharnyx Respiratory: Clear to Auscultation Cardiovascular: RRR Neurological: - - normal strength/sensation, normal speech, CN 2-12 intact Result Diagrams: 07/07/18 12:19 07/07/18 12:19 Additional Lab and Data: Lab Results 07/06/18 Range/Units 00:21 POC Glucose (mg/dL) 122 H (70-100) mg/dL Microbiology and Other Data: Microbiology 07/06/18 20:50 Nasal Screen MRSA (PCR) - Final Nasal Mrsa Not Detected Assess/Plan/Problems-Billing 1. Left MCA vascular territory TIA- s/p IV tPA. She has no LVO. MRI brain is negative for acute ischemic stroke. Repeat CT head 24h post tPA showed no evidence of ICH. We need to evaluate for atrial fibrillation. She has an allergy to apixaban but not sure what she was taking that for. Does she have atrial fibrillation? Start Plavix 75 mg daily Start atorvastatin 20 mg nightly (LDL 136) Keep SBP within normal range Maximized primary stroke prevention Follow-up with neurology as an outpatient in 4 weeks. We will arrange an appointment. 2. Generalized anxiety disorder: She would benefit from low dose benzodiazepine as an outpatient. There is a suspicion that the anxiety could have contributed to her word finding difficulty. 3. Dyslipidemia Time spent: 25 minutes I will sign off but please contact me for any questions or concerns. - Patient Problems (1) Stroke Comment: cont statin/clopidogrel pending PT eval before discharge cleared by Neuro/OT will f/u with Neuro for ongoing management, will need outpatient court recording monitor for r/o afib (2) Anxiety Comment: cont home benzo
[2018-07-07] MEDS ORDERED: amLODIPine TAB* 5 MG PO SCH (21:00)
[2018-07-07] MEDS ORDERED: Metoprolol Succinate XL TAB* 50 MG PO SCH (21:00)
[2018-07-07] MEDS ORDERED: Atorvastatin* 20 MG TAB PO SCH (21:00)
[2018-07-08] MEDS: traMADol TAB* 50 MG PO SCH ×4 (02:21→12:58)
[2018-07-08] MEDS: Insulin REGULAR(*) 1 UNITS UNIT SUBCUT SCH ×3 (02:38→12:35)
[2018-07-08] MEDS: Clopidogrel TAB* 75 MG PO SCH (08:56)
[2018-07-08] MEDS ORDERED: amLODIPine TAB* 5 MG PO SCH (09:00)
[2018-07-08] MEDS: LORazepam TAB(*) 0.5 MG PO PRN (09:02)
[2018-07-08] MEDS ORDERED: Ondansetron TAB* 4 MG PO ONE (12:31)
[2018-07-08 12:33] VITALS: BP 149/59
--- NOTE | 2018-07-08 16:09 | DS ---
CC: Dr. Be Richardson * DISCHARGE SUMMARY: DATE OF ADMISSION: 07/05/18 DATE OF DISCHARGE: 07/08/18 DISPOSITION: To home. CONDITION: Good. PRIMARY DIAGNOSIS: Transient ischemic attack. CONSULTS: Neurology, Dr. Be Richardson. PERTINENT STUDIES: MRI of the brain was without restricted diffusion to suggest acute infarct. An MRI of the head showed no aneurysm, vascular malformation, occlusion or stenosis of the visualized intracranial circulation. A CT head 24 hours after tPA was without intracranial abnormality, specifically no post-tPA hemorrhage, age-related atrophy and moderate chronic small-vessel disease noted. HISTORY OF PRESENT ILLNESS: An 82-year-old woman with chronic kidney disease, COPD, type 2 diabetes, hypertension, anxiety disorder, IBS and prior TIAs, was in her usual state of health until the night prior to presentation. Of note, much of this history was taken from her records and the emergency room provider as the patient was unable to communicate at the time of this interview. Night prior to presentation to [facility], the patient reported that her face felt weird, so she went to the [facility] Emergency Room by 9 p.m. that night and complained that the right side of her face felt strange, but she was alert and oriented x3 without any other complaints. Around 10:17 p.m., the RN found the patient to have word-finding difficulties and perhaps word salad. She went for a CT scan and when she returned, her speech was back to normal. At that time, [facility] was contacted for transfer for neurology evaluation. She was given aspirin and benzodiazepine for anxiety and transferred to [facility]. HOSPITAL COURSE: At [facility], the patient immediately was evaluated by Teleneurology and deemed to be candidate for tPA. At that time, she was aphasic and at about 2 a.m. on 07/06/18, she received tPA. She was noted to have improvements in her word-finding abilities, but still difficulties and with word searching. MRA obtained that day was without large- vessel occlusion, so there was no need for a neurosurgical intervention and she remained at [facility]. By afternoon of day that she received tPA, her neuro exam was back to normal except for some mild motor weakness in the right upper and lower extremities, which resolved by that night. The next morning, a CT scan 24 hours after administration of tPA was without abnormalities. Throughout the day, the patient was seen by Neurology, Occupational Therapy, and Physical Therapy and cleared for discharge without need for home services. On day of discharge, the patient only reports severe anxiety and IBS symptoms at baseline without any new symptoms. She denies a 10- point review of systems otherwise. PHYSICAL EXAM: Afebrile. Heart rate 50s, blood pressure 149/59, satting 99% on room air. General: Well-appearing, conversant woman, in no acute distress. Heart: Regular rate and rhythm. No murmurs, gallops, or rubs. Lungs: Clear to auscultation bilaterally. Abdomen: Soft, nontender, nondistended. Neuro exam with cranial nerves II through XII intact. Motor Exam: Grossly normal. Gait: Without abnormality. Sensation intact in all 4 extremities. A and O x3. DISCHARGE PLAN: The patient is to follow up with her outside primary care physician. She was also given an appointment with Dr. Richardson, Neurology, for 4 weeks. She is to take Plavix and a statin, which were started on this inpatient admission without aspirin and will follow up with Neurology for a possible continuous cardiac monitoring. DISCHARGE MEDICATIONS: 1. Atorvastatin 20 mg nightly. 2. Clopidogrel 75 mg daily. 3. Amlodipine 5 mg daily. 4. Omeprazole 40 mg daily. 5. Metoprolol succinate 50 mg daily. 6. Ezetimibe 10 mg daily. 7. Meclizine 12.5 t.i.d. p.r.n. dizziness. 8. Fioricet q.6 hours as needed for headache. 9. Hydroxyzine 25 mg up to 4 times a day as needed for anxiety. 10. Tramadol 50 mg q.4 hours as needed for pain. 11. Lorazepam 0.5 mg p.o. b.i.d. p.r.n. anxiety. 12. Dicyclomine 10 mg p.o. b.i.d. The patient was given return precautions. She is to resume regular diet and activity as tolerated. TIME SPENT: Approximately 60 minutes spent on discharge of this patient, more than half of which was spent with care coordination at bedside for interview and exam. [id number]/[facility] #: [id number] [place]
== END 2018-07-08 14:15 | disposition home or self-care (01) | DRG 63 ==
LOC: ED 23:59 → ICU 07-06 02:25 → MEDTELE 07-07 09:00
PROVIDERS: ADMIT Internal Medicine; ATTEND Internal Medicine
DX: G45.9 Transient cerebral ischemic attack, unspecified (principal); R29.706 NIHSS score 6; I12.9 Hypertensive chronic kidney disease with stage 1 through stage 4 chronic kidney disease, or unspecified chronic kidney disease; J44.9 Chronic obstructive pulmonary disease, unspecified; E11.22 Type 2 diabetes mellitus with diabetic chronic kidney disease; E78.5 Hyperlipidemia, unspecified; I35.0 Nonrheumatic aortic (valve) stenosis; F41.1 Generalized anxiety disorder; F40.240 Claustrophobia; N18.9 Chronic kidney disease, unspecified; K57.90 Diverticulosis of intestine, part unspecified, without perforation or abscess without bleeding; K58.9 Irritable bowel syndrome, unspecified; Z86.73 Personal history of transient ischemic attack (TIA), and cerebral infarction without residual deficits; Z88.8 Allergy status to other drugs, medicaments and biological substances; Z88.1 Allergy status to other antibiotic agents; Z91.041 Radiographic dye allergy status; Z90.49 Acquired absence of other specified parts of digestive tract; Z79.02 Long term (current) use of antithrombotics/antiplatelets
CPT/HCPCS: 36415; 70450; 70544; 70547; 70551; 71045; 80048; 80053; 80061; 81003; 83605; 84484; 85025; 85027; 85610; 85730; 87641; 93005; 93306; 93880; 99285; A9270-GY; G8978-GP-CI; G8979-GP-CI; G8980-GP-CI; G8987-GO-CI; G8988-GO-CI; G8989-GO-CI; J2060; J2997